=== PATIENT | male | born 1945 | race Caucasian/White ===

== ENCOUNTER 2017-09-16 16:49 | Emergency (ER) | payer MEDICARE, BC ==
--- NOTE | 2017-09-16 17:47 | EDM.PDOC ---
ED HPI GENERAL MEDICAL PROBLEM - General Chief Complaint: General Stated Complaint: low blood pressure Time Seen by Provider: 09/16/17 17:20 Source of Information: Reports: Patient, Family History Limitations: Reports: No Limitations - History of Present Illness INITIAL COMMENTS - FREE TEXT/NARRATIVE: Patient brought in to ER after he had episode of nausea/paleness and low BP at home. Had been outside raking for about three hours in the warm temperatures ( high 80s) then took a break and had a few beers prior to incident. BP was noted to be in 70s systolic at that time. Recalls morning BP was similarly low. States he usually runs about 120/80 in the mornings. Patient had eaten cruz/eggs/banana for breakfast. Nothing since then except for the two beers. Denies SOB, chest pain. No recent med changes. No recent illnesses. No fevers. Amma chilled at time of nausea episode. No bowel/bladder changes. Patient says that usual heart rate is in 50s Treatments [employer]: Reports: Other Medication(s) - Related Data Allergies Allergy/AdvReac Type Severity Reaction Status Date / Time No Known Allergies Allergy Verified 09/16/17 16:51 Home Meds: Home Meds Isosorbide Mononitrate [Isosorbide Mononitrate ER] 120 mg PO DAILY 09/16/17 [ History] Losartan [Cozaar] 25 mg PO DAILY #30 tab 09/16/17 [Rx] Losartan [Cozaar] 50 mg PO DAILY 09/16/17 [History] Mesalamine 4.8 gm PO DAILY 09/16/17 [History] Metoprolol Succinate [Toprol XL 50mg] 50 mg PO DAILY 09/16/17 [History] Metoprolol Succinate [Toprol XL] 25 mg PO DAILY #30 tab.er 09/16/17 [Rx] Oxybutynin [Oxybutynin ER] 10 mg PO DAILY 09/16/17 [History] atorvaSTATin [Lipitor] 60 mg PO BEDTIME 09/16/17 [History] metFORMIN HCl [Metformin HCl ER] 1,000 mg PO DAILY 09/16/17 [History] Past Medical History Cardiovascular History: Reports: Hypertension Gastrointestinal History: Reports: Inflammatory Bowel Disease Genitourinary History: Reports: Prostate Disorder (history of prostate cancer) Social & Family History - Tobacco Use Smoking Status *Q: Former Smoker Years of Tobacco use: 30 Packs/Tins Daily: 1 Used Tobacco, but Quit: Yes Month/Year Tobacco Last Used: 1999 Second Hand Smoke Exposure: Yes - Caffeine Use Caffeine Use: Reports: Coffee, Soda - Alcohol Use Alcohol Use History: Yes Days Per Week of Alcohol Use: 3 Number of Drinks Per Day: 2 Total Drinks Per Week: 6 Alcohol Use in Last Twelve Months: Yes Alcohol Use Frequency: Weekly - Recreational Drug Use Recreational Drug Use: No ED ROS GENERAL - Review of Systems Review Of Systems: See Below Constitutional: Reports: Chills (at time of incident). Denies: Fever, Weakness , Fatigue, Night Sweats, Decreased Appetite HEENT: Reports: No Symptoms Respiratory: Reports: No Symptoms Cardiovascular: Reports: No Symptoms GI/Abdominal: Reports: Nausea. Denies: Abdominal Pain, Constipation, Diarrhea, Hematemesis, Hematochezia, Vomiting : Reports: No Symptoms Musculoskeletal: Reports: No Symptoms Skin: Reports: No Symptoms Neurological: Denies: Headache, Numbness, Syncope, Tingling, Change in Speech, Gait Disturbance Psychiatric: Reports: No Symptoms Hematologic/Lymphatic: Reports: No Symptoms ED EXAM, GENERAL - Physical Exam Exam: See Below Exam Limited By: No Limitations General Appearance: Alert, WD/WN, No Apparent Distress Eye Exam: Bilateral Eye: EOMI, PERRL Ears: Normal External Exam, Normal Canal, Hearing Grossly Normal, Normal TMs Nose: Normal Inspection Throat/Mouth: Normal Inspection, Normal Lips, Normal Voice, No Airway Compromise Head: Atraumatic, Normocephalic Neck: Normal Inspection, Supple, Non-Tender, Full Range of Motion. No: Carotid Bruit Respiratory/Chest: No Respiratory Distress, Lungs Clear, Normal Breath Sounds, No Accessory Muscle Use, Chest Non-Tender Cardiovascular: Normal Peripheral Pulses, Regular Rate, Rhythm, No Edema, No Murmur Peripheral Pulses: 2+: Radial (L), Radial (R) GI/Abdominal: Normal Bowel Sounds, Soft, Non-Tender, No Distention (Male) Exam: Deferred Rectal (Males) Exam: Deferred Back Exam: Normal Inspection. No: CVA Tenderness (L), CVA Tenderness (R), Muscle Spasm, Paraspinal Tenderness, Vertebral Tenderness Extremities: Normal Range of Motion, Non-Tender, Slow Capillary Refill Neurological: Alert, Oriented, CN II-XII Intact, No Motor/Sensory Deficits Psychiatric: Normal Affect, Normal Mood Skin Exam: Warm, Dry, Intact, Pallor (mild) EKG INTERPRETATION EKG Date: 09/16/17 Time: 17:00 Rhythm: Other (sinus bradycardia) Rate (Beats/Min): 54 [place]: Normal P-Wave: Present QRS: Normal ST-T: Normal QT: Normal Comparison: NA - No Prior EKG Course - Vital Signs Last Recorded V/S: Last Vital Signs Temp 36.7 C 09/16/17 16:52 Pulse 64 09/16/17 18:10 Resp 20 09/16/17 18:10 BP 96/62 09/16/17 18:10 Pulse Ox 96 09/16/17 18:10 Orthostatic Blood Pressure [] 106/72 Orthostatic Blood Pressure [] 105/65 Orthostatic Blood Pressure [] 99/58 - Orders/Labs/Meds Orders: Active Orders 24 hr Category Date Time Status EKG Documentation Completion [RC] ASDIRECTED Care 09/16/17 17:11 Active Orthostatic Vital Signs [RC] ASDIRECTED Care 09/16/17 18:50 Ordered Labs: Laboratory Tests 09/16/17 09/16/17 09/16/17 Range/Units 16:52 17:35 17:35 WBC 9.4 (4.0-10.2) K/uL RBC 4.86 (4.33-5.41) M/uL Hgb 15.6 (13.1-16.8) g/dL Hct 45.1 (39.0-49.0) % MCV 92.8 (84.0-98.0) fL MCH 32.1 (28.2-33.3) pg MCHC 34.6 (31.7-36.0) g/dL RDW 13.4 (11.2-14.1) % Plt Count 142 L (150-350) K/uL Neut % (Auto) 82.2 H (45.0-80.0) % Lymph % (Auto) 10.2 (10.0-50.0) % [place] % (Auto) 6.4 (2.0-14.0) % Eos % (Auto) 0.9 (0.0-5.0) % Baso % (Auto) 0.3 (0.0-2.0) % Neut # (Auto) 7.72 H (1.40-7.00) K/uL Lymph # (Auto) 0.96 (0.50-3.50) K/uL [place] # (Auto) 0.60 (0.00-1.00) K/uL Eos # (Auto) 0.08 (0.00-0.50) K/uL Baso # (Auto) 0.03 (0.00-0.20) K/uL Sodium 142 (136-145) mmol/L Potassium 4.3 (3.5-5.1) mmol/L Chloride 105 (98-107) mmol/L Carbon Dioxide 22.4 (21.0-32.0) mmol/L BUN 25 H (7-18) mg/dL Creatinine 1.42 H (0.51-1.17) mg/dL Est Cr Clr Drug Dosing 41.51 mL/min Estimated GFR (MDRD) 49 mL/min Glucose 140 H (74-106) mg/dL POC Glucose 154 H (65-110) mg/dl Calcium 9.7 (8.5-10.1) mg/dL Total Bilirubin 0.6 (0.2-1.0) mg/dL AST 32 (15-37) U/L ALT 50 (12-78) U/L Alkaline Phosphatase 94 (46-116) IU/L Creatine Kinase 177 (26-308) U/L Creatine Kinase Index 3.6 H (0.0-2.5) % CK-MB (CK-2) 6.40 H* (0.00-3.60) ng/mL Troponin I 0.000 (0.000-0.056) ng/mL Total Protein 7.0 (6.4-8.2) g/dL Albumin 3.9 (3.4-5.0) g/dL Meds: Medications Discontinued Medications Generic Name Dose Route Start Last Admin Trade Name Freq PRN Reason Stop Dose Admin Sodium Chloride 500 mls @ 999 mls/hr 09/16/17 17:47 09/16/17 18:23 Normal Saline IV 09/16/17 18:17 999 mls/hr .BOLUS ONE Administration - Re-Assessments/Exams Free Text/Narrative Re-Assessment/Exam: IV bolus 500ml given. Troponin 0.0 EKG showed bradycardia BP remained in 90s. Patient felt asymptomatic. WBC normal. Mild elevation BUN/Cr. Platelets decreased. CKMB/CK elevated ( patient out working in yard in heat half of day) While waiting for lab results, patient overheard talking with family about a diet that he recently started. Further questioning revealed that he had indeed begun a low car diet within the last week and had noticed that his morning BPs had been lower than usual for 2-3 days. Given this new information, it was plausible to link the low carb/lower inflammation diet with the observed changes in BP and this morning's low blood sugar. Cannot rule out contribution from working outside in the heat/mild dehydration. Significant amount of time spent with patient and family concerning lower carb diets and expected changes to be seen with BP/blood sugars. Recommended a more gradual reduction in carb load may be more friendly concerning these parameters vs sudden sharp decrease in carb intake. Plan at this time will be to let patient go home. Will work on plan to decrease BP meds if patient continues to stick to the diet. Encouraged to follow up with his primary provider to review meds if BPs continue to run lower and he is consistent with the dietary changes. Orthostatic BPs taken prior to discharge. BPs improved overall. Free Text/Narrative Re-Assessment/Exam: 09/16/17 19:40 Prior to discharge advised patient to avoid NSAIDs due to observed elevated BUN/ Cr. This may have been aggravated by dehydration, but given patient's age would be best to avoid use of this class of medications. Departure - Departure Time of Disposition: 19:13 Disposition: Home, Self-Care 01 Condition: Good Clinical Impression: Dehydration after exertion Hypotension Qualifiers: Hypotension type: other hypotension type Qualified Code(s): I95.89 - Other hypotension - Discharge Information Prescriptions: Losartan [Cozaar] 25 mg PO DAILY #30 tab Metoprolol Succinate [Toprol XL] 25 mg PO DAILY #30 tab.er Referrals: Alicia Geller MD [Primary Care Provider] - Forms: ED Department Discharge Additional Instructions: Stay hydrated! Keep track of your blood sugars and blood pressures 2-3 times a day. Return to old dose of Isosorbide. You have been given lower dose prescriptions for the Losartan and Toprol XL if you continue to see your BPs low and you stick with this new eating lifestyle. Follow up with your primary provider is important so they know what you are doing! Follow up otherwise as needed if you have problems. Prescriptions for lower dose Toprol XL and Losartan provided to use if BPs remain low/under 120/80 - My Orders Last 24 Hours: My Active Orders 09/16/17 17:11 EKG Documentation Completion [RC] ASDIRECTED 09/16/17 18:50 Orthostatic Vital Signs [RC] ASDIRECTED - Assessment/Plan Last 24 Hours: My Active Orders 09/16/17 17:11 EKG Documentation Completion [RC] ASDIRECTED 09/16/17 18:50 Orthostatic Vital Signs [RC] ASDIRECTED
[2017-09-16] MEDS: Sodium Chloride 0.9% 500 ML IV ONE (18:23)
== END 2017-09-16 19:40 | disposition home or self-care (01) ==
LOC: LL.ED 16:49
DX: I95.89 Other hypotension (principal); E86.0 Dehydration; I10 Essential (primary) hypertension; Z87.891 Personal history of nicotine dependence; Z79.899 Other long term (current) drug therapy
CPT/HCPCS: 36415; 80053; 82550; 82553; 82962; 84484; 85025; 93005; 99284; J7030